=== PATIENT | female | born 1970 | race African-American/Black ===

== ENCOUNTER 2018-07-14 12:47 | Emergency (ER) | payer SELFPAY ==
[2018-07-14 14:20] LABS: #Eosinphils 0.1 thou/uL (0.0-0.7); #Lymphocytes 1.3 thou/uL (1.20-3.40); #Monocytes 0.3 thou/uL (0.11-0.59); #Neutrophils 4.8 thou/uL (1.40-6.50); %Basophils 0.4 % (0.0-1.0); %Eosinophils 1.1 % (0.0-10.0); %Lymphocytes 19.5 % (21.0-51.0); %Monocytes 5.2 % (0.0-10.0); %Neutrophils 73.8 % (42.0-75.0); Hemoglobin 12.3 g/dL (12.0-16.0); Mean Corpuscular HGB CONC 33.4 g/dL (32.0-36.0); Mean Platelet Volume 7.3 fL (7.4-10.4); Platelet Count 369 thou/uL (130-400); RBC Distribution Width 11.7 % (11.5-14.5); Red Blood Cell (RBC) Count 3.85 mill/uL (4.20-5.40); White Blood Cell (WBC) Count 6.6 thou/uL (4.8-10.8)
[2018-07-14] MEDS ORDERED: ISOVUE-370 76%-LOCM 1 ML ONE (14:31)
[2018-07-14 14:40] LABS: ALT (SGPT) 11 U/L (8-55); AST (SGOT) 14 U/L (5-34); Albumin 4.2 g/dL (3.5-5.0); Alkaline Phosphatase 65 U/L (40-150); Anion Gap 15 mmol/L (10-20); BUN (Urea Nitrogen) 19 mg/dL (7.0-18.7); Bilirubin, Total 0.5 mg/dL (0.2-1.2); Calc. Creatinine Clearance 0 mL/min (70-130); Calcium 9.3 mg/dL (7.8-10.44); Carbon Dioxide 20 mmol/L (22-29); Chloride 108 mmol/L (98-107); Estimated GFR-MDRD 55; Globulin 3.5 g/dL (2.4-3.5); Glucose 94 mg/dL (70-105); Lipase 33 U/L (8-78); Potassium 4.3 mmol/L (3.5-5.1); Protein, Total 7.7 g/dL (6.0-8.3); Sodium 139 mmol/L (136-145)
--- NOTE | 2018-07-14 15:06 | CT ---
CT ABDOMEN AND PELVIS WITH IV CONTRAST: Date: 07/14/18 PROVIDED CLINICAL HISTORY: Abdominal pain. FINDINGS: No comparison. The visualized lung bases are free of significant opacity. The liver, spleen, pancreas, kidneys, and adrenal glands demonstrate a normal CT appearance. There is no bowel dilatation, inflammatory fat stranding, free fluid, or free air apparent. Postopera tive changes are seen involving the right colon. The osseous structures demonstrate no concerning osteoblastic or osteolytic lesion. IMPRESSION: No evidence for an acute process. POS: [facility]
--- NOTE | 2018-07-14 15:34 | ULT ---
RIGHT UPPER QUADRANT ULTRASOUND: Date: 07/14/18 PROVIDED CLINICAL HISTORY: Abdominal pain. FINDINGS: Visualized IVC and pancreas appear normal. Liver demonstrates no mass or intrahepatic biliary ductal dilatation. Common duct is not dilated. Gallbladder demonstrates no stones, wall thickening, or peric holecystic fluid. Right kidney demonstrates no hydronephrosis or mass. Limited sonographic interrogat ion of the anterior abdominal wall in the midline in the region of patient palpable complaint reveals a small defect in the abdominal wall with small fat-containing hernia. This is retrospectively prese nt on the CT examination performed earlier, without associated induration of the fat. This is small i n nature, measuring about 2.0 cm. IMPRESSION: 1. No evidence for an acute process. 2. Small, fat-containing ventral abdominal hernia. POS: [facility]
[2018-07-14 16:16] LABS: Bilirubin Negative (Negative); Blood, Urine Moderate (Negative); Clarity CLEAR (Clear); Glucose, Urine (Dipstick) Negative (Negative); Leukocyte Negative (Negative); Nitrite Negative (Negative); Protein, Urine (Dipstick) Negative (Neg-Trace); Specific Gravity, Urine 1.032 (1.002-1.036); Urobilinogen 0.2 mg/dL (0.2-1.0)
[2018-07-14 16:18] LABS: Bacteria/HPF Rare-Few HPF (None Seen); Hyaline Casts/LPF 0-3 HYALINE CAST LPF (0-3 Hyaline); Pathc Cast-AUWi Flag 0.58 (0-2.49); RBC/HPF 0-3 HPF (0-3)
== END 2018-07-14 16:00 | disposition home or self-care (01) ==
LOC: ERS 12:47
DX: K43.9 Ventral hernia without obstruction or gangrene (principal); M19.90 Unspecified osteoarthritis, unspecified site; I10 Essential (primary) hypertension
CPT/HCPCS: 36415; 74177; 76705; 80053; 81003; 81015; 83690; 85025